=== PATIENT | female | born 1945 | race Two or more races ===

== ENCOUNTER 2024-10-25 11:05 | Emergency (ER) | payer OTHER ==
[~2024-10-25] VITALS: Ht 160 cm; Wt 79.4 kg
[~2024-10-25 11:05] MED LIST: ALPRAZOLAM XR2 MG PO; CLONAZEPAM2 MG PO; CYMBALTA60 MG PO; HUMIRA40 MG/0.1; SEROQUEL50 MG PO; SYNTHROID50 MCG PO
[2024-10-25] MEDS ORDERED: KETOROLAC TROMETHAMINE 30 MG VIAL IM ONE (16:45)
[2024-10-25] MEDS ORDERED: KETOROLAC TROMETHAMINE 30 MG VIAL ONE (16:57)
== END 2024-10-25 17:34 | disposition home or self-care (01) ==
LOC: ER 11:07
DX: S79.811A Other specified injuries of right hip, initial encounter (principal); W19.XXXA Unspecified fall, initial encounter; Y93.89 Activity, other specified; Y92.89 Other specified places as the place of occurrence of the external cause; Y99.8 Other external cause status; I10 Essential (primary) hypertension; E11.9 Type 2 diabetes mellitus without complications; Z88.1 Allergy status to other antibiotic agents
CPT/HCPCS: 73502; 73560; 96372; 99283; J1885